=== PATIENT | female | born 1990 | race Caucasian/White ===

== ENCOUNTER 2016-07-14 14:54 | Emergency (ER) | payer OTHER ==
[2016-07-14] MEDS ORDERED: IV NORMAL SALINE 1000ML BAG 1,000 ML IV ONE ×2 (15:15→16:00)
[2016-07-14] MEDS ORDERED: ONDANSETRON PF 4 MG/2 ML VIAL. IV ONE (15:15)
[2016-07-14] MEDS: HYDROMORPHONE 2 MG/ML VIAL. IV PRN ×2 (15:20→17:32)
--- NOTE | 2016-07-14 15:25 | PHYS DOC ---
Past Medical History Past Medical History: Kidney Stone Past Surgical History: No Surgical History Alcohol Use: None Drug Use: None Adult General Chief Complaint Chief Complaint: FLANK PAIN HPI HPI 26-year-old female presenting today with left flank pain. Her pain sharp radiating to the groin. It is severe. She was seen recently at [facility] where she was diagnosed with a 1 mm left kidney stone and discharged home with oral pain medications. She reports the pain getting worse today. It is associated with hematuria. She denies vomiting. She denies abdominal pain chest pain or shortness of breath. Review of Systems Review of Systems Negative for fevers chills. She denies chest pain shortness of breath or abdominal pain. All other review of systems is negative unless otherwise noted in history of present illness. Current Medications Current Medications Current Medications Medications (Trade) Dose Ordered Sig/Hank Start Time Stop Time Status Last Admin Dose Admin Hydromorphone HCl (Dilaudid) 0.5 mg PRN Q1HR PRN 07/14/16 15:15 07/14/16 15:20 0.5 MG Ondansetron HCl 4 mg 4 mg 1X ONCE 07/14/16 15:15 07/14/16 15:16 DC 07/14/16 15:20 4 MG Sodium Chloride (Iv Sodium Chloride 0.9% 1000ml Bag) 1,000 ml @ 1,000 mls/hr 1X ONCE 07/14/16 16:00 07/14/16 16:59 DC 07/14/16 16:00 1,000 MLS/HR Allergies Allergies Allergies Coded Allergies Type Severity Reaction Last Updated Verified No Known Drug Allergies 07/14/16 No Physical Exam Physical Exam Constitutional: Well developed, well nourished, no acute distress, non-toxic appearance. HENT: Normocephalic, atraumatic, bilateral external ears normal, oropharynx moist, no oral exudates, nose normal. [] Eyes: PERRLA, EOMI, conjunctiva normal, no discharge. Neck: Normal range of motion, no tenderness, supple, no stridor. [] Cardiovascular:Heart rate regular rhythm, no murmur Lungs & Thorax: Bilateral breath sounds clear to auscultation Abdomen: Soft and nontender to palpation. Negative McBurney's point. Negative Pablo sign. No rebound tenderness or guarding present. Nondistended. Skin: Warm, dry, no erythema, no rash. Back: No tenderness, mild left cva tenderness. Extremities: No tenderness, no cyanosis, no clubbing, ROM intact, no edema. [] Neurologic: Alert and oriented X 3, normal motor function, normal sensory function, no focal deficits noted. Psychologic: Affect normal, judgement normal, mood normal. [] Current Patient Data Vital Signs Vital Signs Date Time Temp Pulse Resp B/P Pulse Ox O2 Delivery O2 Flow Rate FiO2 07/14/16 15:53 Room Air 07/14/16 15:08 97.9 69 11 144/88 99 97.9 Lab Values Laboratory Tests Test 07/14/16 16:40 Urine Collection Type Unknown Urine Color Yellow Urine Clarity Clear Urine pH 6.5 Urine Specific [place] <=1.005 Urine Protein Negativemg/dL (NEG-TRACE) Urine Glucose (UA) Negativemg/dL (NEG) Urine Ketones (Stick) Negativemg/dL (NEG) Urine Blood Small (NEG) Urine Nitrite Negative (NEG) Urine Bilirubin Negative (NEG) Urine Urobilinogen Dipstick 0.2mg/dL (0.2 mg/dL) Urine Leukocyte Esterase Negative (NEG) Urine RBC Occ/HPF (0-2) Urine WBC 0/HPF (0-4) Urine Squamous Epithelial Cells Few/LPF Urine Bacteria 0/HPF (0-FEW) Urine Mucus Slight/LPF Urine Test Negative (NEG) EKG EKG [] Radiology/Procedures Radiology/Procedures [] Course & Med Decision Making Course & Med Decision Making Pertinent Labs and Imaging studies reviewed. (See chart for details) 26-year-old female presenting to the emergency department with left flank pain previously diagnosed with nephrolithiasis. Vital signs were unremarkable. Physical exam showed mild left CVA tenderness. Urinalysis consistent with nephrolithiasis. Urine negative. Patient's pain was treated with IV fluids nausea and pain control in the emergency department. On reevaluation she was feeling much better. She was then subsequently discharged home to follow-up with urology if her symptoms continued in the next 7-10 days. Dragon Disclaimer Dragon Disclaimer This electronic medical record was generated, in whole or in part, using a voice recognition dictation system. Departure Departure Impression: Primary Impression: Left flank pain Additional Impression: Nephrolithiasis Disposition: 01 HOME, SELF-CARE Condition: STABLE Referrals: LETICIA GOMEZ DO 7-10 days Patient Instructions: Kidney Stones Additional Instructions: Thank you for allowing us to participate in your care today. Followup with your primary care physician in 3 days if your symptoms do not improve. Return to the emergency department you have any new or concerning findings. This should be evaluated by the primary care physician and any necessary consulting services for continued management within a few days after discharge. Return to emergency room if you have any new or concerning symptoms including but not limited to fever, chills, nausea, vomiting, intractable pain, any new rashes, chest pain, shortness of air, uncontrolled bleeding, difficulty breathing, and/or vision loss. Be careful as some of the medications that are prescribed in the emergency department can cause drowsiness and fatigue. Do not drive on medications that can cause drowsiness. Some of these medications include Benadryl or hydrocodone. Be sure to check with her pharmacist about any medications you were prescribed today regarding this. Scripts Hydrocodone Bit/Acetaminophen (Hydrocodone-Apap 5-325 )1 Each Tablet2 Tab PO PRN Q6HRS PRN PAIN #15 TAB Be careful as this medication may cause you to be drowsy or tired. Do not drive on this medication. Prov:CHADD LYNHC MD 07/14/16 Problem Qualifiers CHADD LYNCH MD Jul 14, 2016 15:25
[2016-07-14 16:50] VITALS: BP 122/79
[2016-07-14 16:53] LABS: NEG OBC UR NEG; POS OBC UR POS
[2016-07-14 16:56] LABS: BILIRUBIN,URINE NEGATIVE (NEG); GLUCOSE,URINE NEGATIVE (NEG); NITRITE,URINE NEGATIVE (NEG); PH,URINE 6.5; PROTEIN,URINE NEGATIVE (NEG-TRACE); UROBILINOGEN,URINE 0.2 mg/dL (0.2 mg/dL)
[2016-07-14 17:12] LABS: RBC,URINE OCC /HPF (0-2)
[2016-07-14 17:13] LABS: BACTERIA,URINE 0 /HPF (0-FEW); SQUAMOUS EPITHELIAL CELL,UR FEW /LPF; WBC,URINE 0 /HPF (0-4)
[2016-07-14] MEDS ORDERED: HYDR-2666 PO (17:21)
== END 2016-07-14 17:35 | disposition home or self-care (01) ==
LOC: ER 14:54
DX: N20.0 Calculus of kidney (principal)
CPT/HCPCS: 81001; 81025; 96361; 96374; 96375; 96376; 99284; J1170; J2405; J7030

== ENCOUNTER 2016-12-10 20:35 | Emergency (ER) | payer OTHER ==
[~2016-12-10] VITALS: Ht 165.1 cm; Wt 66.7 kg
[~2016-12-10 20:35] MED LIST: HYDR-2758 PO
[2016-12-10 20:45] VITALS: BP 131/80
[2016-12-10] MEDS ORDERED: NAPROXEN 500 MG TABLET PO STA (21:18)
[2016-12-10] MEDS ORDERED: diazePAM 5 MG TABLET PO ONE (22:00)
[2016-12-10] MEDS ORDERED: HYDROcodone/APAP 5/325MG 1 TAB TABLET PO ONE (22:00)
--- NOTE | 2016-12-10 22:39 | RAD ---
Exam performed: CT scan of the cervical spine without contrast. Date of Service:12/10/2016 Comparison: None available . Clinical History: Neck pain, status post fall Technique: Helical acquisitions are obtained through the cervical spine. Sagittal and coronal reformatted images are obtained and reviewed. CT cervical spine findings: Normal sagittal alignment is preserved. The vertebral body heights and intravertebral disc spaces are maintained. There is no julio or retrolisthesis. No prevertebral soft tissue swelling is identified. There are no fractures. No definite lymphadenopathy or masses are seen within the neck. The visualized thyroid and salivary glands appears preserved. Impression: No acute abnormality seen in the CT scan cervical spine. Electronically signed by: Ankita Moyer MD (12/10/2016 10:35 PM)
[2016-12-10] MEDS ORDERED: TRAM-48 PO (22:59)
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
== END 2016-12-10 23:09 | disposition home or self-care (01) ==
LOC: ER 20:35
DX: G89.29 Other chronic pain (principal); M54.2 Cervicalgia; Z87.442 Personal history of urinary calculi; W18.30XA Fall on same level, unspecified, initial encounter; Y93.89 Activity, other specified; Y99.8 Other external cause status; Y92.89 Other specified places as the place of occurrence of the external cause
CPT/HCPCS: 72125; 81025; 99284-25